=== PATIENT | female | born 1940 | race Caucasian/White ===

== ENCOUNTER 2016-03-28 00:06 | Day surgery (SDC) | payer MEDICARE ==
[2016-03-28] VITALS (8 sets, daily range): BP systolic 94–153; BP diastolic 49–94; PULSE 71–83; RESP 10–20; O2SAT 96
[~2016-03-28] VITALS: Ht 149.9 cm; Wt 61.0 kg
[~2016-03-28 00:06] MED LIST: CALC-243 PO; CHOL200047 PO; DIGO250T72 PO; FLUT16SP NS; FRSM80T PO; GABA-502 PO; LEVA1.2515 INHALATION; LEVA15HF5 IH; LOVA20TA PO; METO50TA3 PO; OMEP40CA36 PO; Oxygen NS; POTA-62 PO; SELE180S4 TP; SODI75SP NS; WARF5TAB7 PO
[2016-03-28] MEDS ORDERED: 0.9% Sodium Chloride 1,000 ML IV SCH ×2 (06:15→09:09)
[2016-03-28 06:35] LABS: BASOPHILS % (AUTO) 0.9 % (0-3); EOSINOPHILS % (AUTO) 2.9 % (0-5); MONOCYTES % (AUTO) 10.1 % (4-12); Mean Corpuscular Hemoglobin 30.6 pg (27.0-35.0); Mean Corpuscular Volume 94.6 fL (81-100); NEUTROPHILS % (AUTO) 59.7 % (40-74); Platelet Count 181 bil/L (150-400)
[2016-03-28] MEDS ORDERED: Vancomycin Inj 1,000 MG in IV Premix 1 EACH IV ONE (07:00)
[2016-03-28 07:04] LABS: INR 1.69 ratio
[2016-03-28] MEDS ORDERED: Vancomycin 1,000 mg Inj ONE (07:38)
[2016-03-28] MEDS ORDERED: Heparin 5,000 Units/500 mL NS Premix IV ONE (07:38)
[2016-03-28] MEDS ORDERED: Bupivacaine-MPF 0.5% 30 mL Inj ONE (07:39)
[2016-03-28] MEDS ORDERED: Water for Injection 50 ML IV ONE (07:39)
[2016-03-28] MEDS ORDERED: 0.9% Sodium Chloride 250 ML ONE (07:39)
[2016-03-28] MEDS ORDERED: Ondansetron 2 mg/mL 2 mL Inj IVPUSH PRN (09:10)
--- NOTE | 2016-03-28 09:33 | HP ---
[address] [address] HISTORY AND PHYSICAL PATIENT: APPLE SALDAÑA : 1940 MR#: [id number] ADMIT: 03/28/2016 JOB ID: [id number] DATE: 03/28/2016 IDENTIFICATION: The patient is a pleasant 76-year-old woman with a structurally normal heart and chronic atrial fibrillation with tachybrady syndrome, and a single-chamber pacemaker implanted in 2001, by Dr. Tamez at the [facility]. She has reached elective replacement indicator and does use her pacemaker a portion of the time. She feels well, denying any chest pain, pressure, discomfort, lightheadedness, or syncope. Her pacemaker lead has been functioning well, and her battery has depleted in normal state. She is followed in clinic by Dr. Yates. IMPRESSION AND RECOMMENDATION: The patient is a pleasant 76-year-old woman with chronic atrial fibrillation and a single-chamber pacemaker that has reached TEJ. I recommend a single-chamber pacemaker generator replacement. I discussed the risks and benefits of the procedure in detail. Ultimately, she wishes to proceed. I also discussed the potential for lead injury and requiring new lead placement. She does have a history of partial clavicular resection for thoracic outlet syndrome. PLAN: Single-chamber pacemaker generator placement. Thank you very much for allowing me to participate in the care of the patient. Please call with questions. TIME SPENT: I spent approximately half an hour with this patient coordinating her care. Greater 50% of this time was spent on counseling the patient.
--- NOTE | 2016-03-28 09:59 | OP ---
[address] [address] OPERATIVE REPORT PATIENT: APPLE SALDAÑA : 1940 MR#: [id number] ADMIT: 03/28/2016 JOB ID: [id number] DATE OF SURGERY: 03/28/2016 PREOPERATIVE DIAGNOSIS(ES): Pacemaker battery depletion. POSTOPERATIVE DIAGNOSIS(ES): Pacemaker battery depletion. PROCEDURE PERFORMED: Single-chamber pacemaker generator replacement. SURGEON: Oliver Delgado MD, electrophysiology attending. MAIL TELLER: Giancarlo Castro. IMPLANTED DEVICE: Medtronic Adapta pulse generator model ADSR01, serial #[id number]. EXPLANTED DEVICE: Medtronic Sigma pulse generator model BSM441I, serial #[id number]. CHRONIC DEVICE: Right ventricular lead Medtronic 5076, 52 cm, serial #[id number]. ANESTHESIA: Local anesthetic alone was utilized for this case per patient preference. INDICATION: The patient is a pleasant 76-year-old woman with chronic atrial fibrillation, with Single-chamber pacemaker that has reached TEJ. After discussion of risks and benefits of pacemaker generator replacement, she opted to proceed. PROCEDURAL DESCRIPTION: Following informed signed consent, the patient was taken to the EP laboratory in a fasting, nonsedated state, where she was prepped and draped in the usual sterile fashion. The left deltopectoral groove incision was infiltrated with 40 cc of a 50/50 mixture of bupivacaine and lidocaine. Once adequate anesthesia had been achieved, a 3 cm incision was performed overlying previous surgical scar. Dissection was carried down to the capsule and generator lead was freed loose of adhesions. The lead was inspected and shown to be intact. It was disconnected from the old generator and connected to the PSA and showed stable lead parameters including sensing threshold and impedance. The pocket was copiously irrigated with antibiotic solution. The chronic lead was connected to the new pulse generator. The entire system was replaced into the capsule. The incision was closed with running layers of absorbable suture. The wound was dressed with skin adhesive and a small dressing. At the end of the procedure, the needle, sponge and instrument counts were all correct. COMPLICATIONS: None. ESTIMATED BLOOD LOSS: Negligible. PSA DATA: 7.5 mV, 493 ohms, 0.2 V at 0.5 msec. FINAL PROGRAM PARAMETERS: VVI 60 beats per minute. IMPRESSION: Successful single-chamber pacemaker generator replacement. PLAN: 1. Recovery and discharge from the [facility]. 2. Doxycycline 100 mg p.o. daily x7 days. 3. Wound check in one week. 4. Follow up with Kolby Jack PA-C in six weeks. ATTENDING STATEMENT: Oliver Delgado MD, electrophysiology attending, was present for and supervised/performed all aspects of this procedure.
[2016-03-28] MEDS ORDERED: DOXY100T2 PO (10:54)
== END 2016-03-28 23:59 | disposition home or self-care (01) ==
LOC: SOUO 00:06
PROVIDERS: ATTEND Internal Medicine Cardiovascular Disease
DX: Z45.010 Encounter for checking and testing of cardiac pacemaker pulse generator [battery] (principal); I49.5 Sick sinus syndrome; I48.2 Chronic atrial fibrillation; E78.00 Pure hypercholesterolemia, unspecified; K21.9 Gastro-esophageal reflux disease without esophagitis; I11.9 Hypertensive heart disease without heart failure; J44.9 Chronic obstructive pulmonary disease, unspecified; E78.5 Hyperlipidemia, unspecified; Z86.718 Personal history of other venous thrombosis and embolism; Z79.01 Long term (current) use of anticoagulants
CPT/HCPCS: 33227; 36415; 80048; 85025; 85610; C1786; J1644; J3370; J7050